=== PATIENT | female | born 1965 | race Caucasian/White ===

== ENCOUNTER 2018-04-06 08:36 | Day surgery (SDC) | payer BC, SELFPAY ==
--- NOTE | 2018-04-06 | LES_PTH ---
PATIENT: RIGO SILVA [place] [facility] [id number] AGE/SX: 52/F ROOM: RE04/06/[address]: Dr. Gregory Hess MD : 1965 BED: DIS: 04/06/2018 SPEC #: [id number] RECD: 04/09/18 13:40 STATUS: PHILLIP RECheo #: [id number] OZZIE: 04/06/18 00:[address]: Gregory Hess DEPT: SURGICAL PATHOLOGY RECD BY: Porter Castellon ENTERED: 04/09/18 13:41 SP TYPE: Lesion OTHR DR: Dr. Diana Hebert MD Tissues: Skin of face, NOS Procedures: Surgery Specimen Level IV HEADER OPERATION: Excision infected cystic lesions left cheek PRE-OP DIAGNOSIS: 3 cm infected cystic lesion cluster left cheek (3 lesions); 3 cm infected cystic lesion cluster right cheek (6 lesions); 1 cm infected cystic lesions left medial cheek at level of commissure; family history skin cancer TISSUE SUBMITTED: Cystic lesion cluster x3 left cheek MICROSCOPIC DIAGNOSIS Cyst lesion cluster x3, left cheek, excision: Epidermal inclusion cyst, multiple, fragmented. BROOKS:[place] 04/10/18 MICROSCOPIC DESCRIPTION Slides are reviewed. GROSS DESCRIPTION Received in fixative is one container labeled with the patient's name and designated cystic lesion cluster x3 left cheek. The specimen consists of multiple pieces of banks-yellow to brown soft tissue that in aggregate measure 1.5 x 1.5 x 0.3 cm. The entire specimen is submitted in one cassette. / BROOKS:[place] 04/09/18 TC:5 CPT: 44327
--- NOTE | 2018-04-06 00:04 | HP.PCM_ITS ---
History and Physical Date of Admission: 04/06/18 HISTORY OF PRESENT ILLNESS 52 year old woman presents with multiple infected cystic lesions cluster on her bilateral cheeks that have worsened over the last couple of years. They have intermittently enlarged on both cheeks and have improved with antibiotics. She had a large one spontaneously drained on the left cheek at home and she was placed on antibiotics. At the present time, she has no complaints of infection. She denies any fever. Sometimes when there is drainage, patient states it doesn't smell very good. She states she has never been treated for acne. Patient is a smoker who states she is in the process of quitting. She presents at this time for further evaluation and treatment. PAST MEDICAL HISTORY UTI (urinary tract infection) PAST SURGICAL HISTORY left oophorectomy MEDICATIONS alendronate ALLERGIES None. FAMILY HISTORY Father - Heart disease, Melanoma Mother - Thyroid disorder SOCIAL HISTORY Smoking Status: Former smoker REVIEW OF SYSTEMS General - Denies fever, fatigue, and weight loss. Eyes - Denies cataracts and glaucoma. ENT - Denies nasal congestion and sore throat. Endocrine - Denies excessive thirst and urination. Skin - Denies skin cancer. Has multiple cystic lesions cluster bilateral cheeks with history of intermittent infection. Musculoskeletal - Denies joint pain, joint stiffness, weakness of muscles and joints, back pain, and arthritis. Neuro - Denies headaches. Cardiovascular - Denies chest pain, fatigue, and shortness of breath with exertion. Psych - Denies anxiety and depression. Respiratory - Denies chronic cough and shortness of breath. Gastrointestinal - Denies nausea, vomiting, diarrhea, and constipation. Hematologic - Denies abnormal bruising and bleeding. Genitourinary - Denies hematuria and urinary frequency. PHYSICAL EXAMINATION General - Alert and Oriented HEENT - PERRL. EOMI. Throat is clear. On the left cheek there is a cluster of cystic lesions each measuring about 6 mm. The lateral most lesion measures 6 mm. There are about 3 small lesion in the cluster. The cluster measures 3 cm. No evidence of infection at this time. On the right cheek there is a cluster of cystic lesions each measuring about 4 mm. There are about 6 small lesions in the cluster. The cluster measures 3 cm. No evidence of infection at this time. On the left medial cheek at the level of the commissure is a cystic lesion that measures 1 cm. No evidence of infection at this time. No ulcerations. Lesions are nontender. Neck - Supple and nontender. No cervical adenopathy. No suspicious lesions noted. Lungs - Clear to auscultation. Heart - Regular rate and rhythm. Abdomen - Soft and nondistended. Extremities - FROM. No axillary adenopathy. Radial pulses are palpable. No suspicious lesions noted. Neuro - CN II-XII grossly intact. Psych - Normal mood and affect. ASSESSMENT 1. 3 cm infected cystic lesions cluster left cheek (3 lesions). 2. 3 cm infected cystic lesions cluster right cheek (6 lesions). 3. 1 cm infected cystic lesion left medial cheek at the level of the commissure. 4. Family history of skin cancer. 5. Smoker, recently quit for the surgery. PLAN Recommend excision of these cystic lesions cluster and send them to Pathology for analysis to rule out carcinoma. Reconstruction may need a local skin flap or skin graft. I will excise just a couple of them initially, the most symptomatic, to see how well she heals. if healing is adequately, can then address the rest of them. If infection is noted at the time of excision, tissue will be sent to Microbiology for culture. A positive culture would necessitate antibiotic therapy. Told the patient that smoking can affect healing and can aggravate these cystic lesions cluster. Encouraged patient to stop smoking as it may have deleterious effects on wound healing. Surgery would be done on an outpatient basis under general anesthesia. After the incisions have healed, she may benefit from a good skin care regimen that may help keep her pores unplugged and open. Also periodical facials may help as well. Patient was informed of the risks and complications of the procedure including alternatives to surgery. These were discussed with the patient personally. Patient voices understanding and wishes to proceed. Some of the risks and complications were included in a form from the [employer].
[2018-04-06 09:02] VITALS: BP 128/71; PULSE 85; RESP 16; TEMP 37.4; O2SAT 100; BMI 24.7
[2018-04-06] MEDS: Mupirocin Ointment 22gm Tube 1 APPLIC (13:40)
--- NOTE | 2018-04-06 13:50 | OP.PN_ITS ---
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 1 cm and 6 mm and 6 mm chronically infected cystic lesions cluster x3 left cheek. 2. Family history of skin cancer. 3. Smoker, recently quit for the surgery. Post-Operative Diagnosis: Same. Surgery/Procedure Performed:: Excision 1 cm and 6 mm and 6 mm chronically infected cystic lesions cluster x3 left cheek with layered closure. Description of Surgical Findings:: 52 year old woman presents with multiple infected cystic lesions cluster on her bilateral cheeks that have worsened over the last couple of years. They have intermittently enlarged on both cheeks and have improved with antibiotics. She had a large one spontaneously drained on the left cheek at home and she was placed on antibiotics. At the present time, she has no complaints of infection. She denies any fever. Sometimes when there is drainage, patient states it doesn't smell very good. She states she has never been treated for acne. Patient is a smoker who states she is in the process of quitting. Today the patient underwent excision 1 cm and 6 mm and 6 mm chronically infected cystic lesions cluster x3 left cheek with layered closure. Estimated Blood Loss: 5 ml. Specimen's removed: Chronically infected cystic lesions cluster x3 to Pathology. Drains: None. Type of Anesthesia:: Local MAC - xylocaine with epinephrine and IV sedation. - Admit VTE Documentation VTE Present on Admission: No VTE Mechan Device Prophylaxis: SCD's VTE Pharm Prophylaxis ordered?: No
[2018-04-06 13:58] VITALS: BP 106/70; BP 128/71; PULSE 81; RESP 16; TEMP 36.8; O2SAT 100
--- NOTE | 2018-04-06 13:58 | PCM.DC ---
You will use the following diet at home:: No restrictions Discharge Activity: May not drive while taking narcotic pain medications., May Shower - in two days., - - keep head elevated. no heavy lifting. May shower in (days): 2 May resume sexual activity in: No Restrictions Ice area for (Minutes): 5 - as needed for facial swelling. Weight Bearing Status: Weight bearing as tolerated Lifting Restrictions: 20 lbs. Keep extremity elevated above heart level: - - elevate head. Call your doctor if your incision/area has: Continuous Slow Oozing, Sudden Increased Bleeding, Increased Pain/ Swelling, Increased Redness, Foul Smelling Discharge, Swelling at the incision site Call your doctor if you observe: Fever of 101 or Higher, Coldness, Increased Pain, Shortness of breath, Chest pain, Calf discomfort, Uncontrolled pain Suture Line Care: - - apply antibiotic ointment to suture line daily. Allergies/Adverse Reactions: Allergies No Known Allergies Allergy (Verified 04/06/18 09:00) Medications to take at Discharge Clindamycin HCl [Cleocin] 300 mg PO TID #21 cap 04/06/18 Lactobacillus Acidophilus/Fos [Acidophilus Probiotic Tablet] 1 ea PO BID #15 tab 04/06/18 Oxycodone HCl/Acetaminophen [Percocet 5/325] 1 tab PO 4X/DAY PRN PRN 5 Days #20 tab 04/06/18 The following prescriptions were given: Oxycodone HCl/Acetaminophen [Percocet 5/325] 1 tab PO 4X/DAY PRN PRN 5 Days #20 tab PRN Reason: Pain Lactobacillus Acidophilus/Fos [Acidophilus Probiotic Tablet] 1 ea PO BID #15 tab Clindamycin HCl [Cleocin] 300 mg PO TID #21 cap Primary Care Physician: Diana Hebert [Primary Care Provider] - Test Results: Test results from this visit will be discussed in further detail at your follow-up appointment, if applicable. Please Follow Up With: Gregory Hess MD When: one week. call [phone] for appt. Proposed Discharge Date: 04/06/18
--- NOTE | 2018-04-06 14:01 | DCINST_ITS ---
You will use the following diet at home:: No restrictions Discharge Activity: May not drive while taking narcotic pain medications., May Shower - in two days., - - keep head elevated. no heavy lifting. May shower in (days): 2 May resume sexual activity in: No Restrictions Ice area for (Minutes): 5 - as needed for facial swelling. Weight Bearing Status: Weight bearing as tolerated Lifting Restrictions: 20 lbs. Keep extremity elevated above heart level: - - elevate head. Call your doctor if your incision/area has: Continuous Slow Oozing, Sudden Increased Bleeding, Increased Pain/ Swelling, Increased Redness, Foul Smelling Discharge, Swelling at the incision site Call your doctor if you observe: Fever of 101 or Higher, Coldness, Increased Pain, Shortness of breath, Chest pain, Calf discomfort, Uncontrolled pain Suture Line Care: - - apply antibiotic ointment to suture line daily. Allergies/Adverse Reactions: Allergies No Known Allergies Allergy (Verified 04/06/18 09:00) Medications to take at Discharge Clindamycin HCl [Cleocin] 300 mg PO TID #21 cap 04/06/18 Lactobacillus Acidophilus/Fos [Acidophilus Probiotic Tablet] 1 ea PO BID #15 tab 04/06/18 Oxycodone HCl/Acetaminophen [Percocet 5/325] 1 tab PO 4X/DAY PRN PRN 5 Days #20 tab 04/06/18 The following prescriptions were given: Oxycodone HCl/Acetaminophen [Percocet 5/325] 1 tab PO 4X/DAY PRN PRN 5 Days #20 tab PRN Reason: Pain Lactobacillus Acidophilus/Fos [Acidophilus Probiotic Tablet] 1 ea PO BID #15 tab Clindamycin HCl [Cleocin] 300 mg PO TID #21 cap Primary Care Physician: Diana Hebert [Primary Care Provider] - Test Results: Test results from this visit will be discussed in further detail at your follow- up appointment, if applicable. Please Follow Up With: Gregory Hess MD When: one week. call [phone] for appt. Proposed Discharge Date: 04/06/18
[2018-04-06 14:04] VITALS: BP 125/77; BP 128/71; PULSE 80; RESP 16; O2SAT 100
[2018-04-06 14:09] VITALS: BP 110/81; BP 128/71; PULSE 76; RESP 16; O2SAT 100
[2018-04-06 14:14] VITALS: BP 124/74; BP 128/71; PULSE 79; RESP 16; TEMP 37.1
[2018-04-06 14:40] VITALS: BP 128/71
--- NOTE | 2018-04-06 17:45 | PCM.OPRPT ---
Report of Operation Date of Procedure: 04/06/18 Pre-Operative Diagnosis: 1. 1 cm and 6 mm and 6 mm chronically infected cystic lesions cluster x3 left cheek. 2. Family history of skin cancer. 3. Smoker, recently quit for the surgery. Post-Operative Diagnosis: Same. Surgery/Procedure Performed:: Excision 1 cm and 6 mm and 6 mm chronically infected cystic lesions cluster x3 left cheek with layered closure. Description of Surgical Findings:: 52 year old woman presents with multiple infected cystic lesions cluster on her bilateral cheeks that have worsened over the last couple of years. They have intermittently enlarged on both cheeks and have improved with antibiotics. She had a large one spontaneously drained on the left cheek at home and she was placed on antibiotics. At the present time, she has no complaints of infection. She denies any fever. Sometimes when there is drainage, patient states it doesn't smell very good. She states she has never been treated for acne. Patient is a smoker who states she is in the process of quitting. Patient was informed of the risks and complications of the procedure including alternatives to surgery. These were discussed with the patient personally. Patient voices understanding and wishes to proceed. Some of the risks and complications were included in a form from the [employer]. Encouraged patient to stop smoking as it may have deleterious effects on wound healing. She states she has quit. 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 Specimen's removed: Chronically infected cystic lesions cluster x3 to Pathology. Drains: None. Estimated Blood Loss (mL): 5 ml. Description of Procedure: Patient was taken to OR in supine position and was given IV sedation. The left cheek was prepped and draped in the usual fashion. SCD's were placed for DVT prophylaxis. Perioperative antibiotics were given intravenously. The lesions cluster left cheek were infiltrated with xylocaine and epinephrine. After waiting 5 minutes for the anesthetic to take effect, I proceeded with oblique incisions over these lesions cluster x 3 down into the subcutaneous tissue. There was a lot of scar tissue present which was excised. Some of the overlying skin was adherent and was excised as well. The cystic lesions were dissected free and were well encapsulated and were excised and sent to Pathology for analysis to rule out carcinoma. The subcutaneous tissue and muscle were seen and no further evidence of lesions were noted. These lesions were chronically infected, but there was no evidence of infection today. The most lateral lesion measured 1 cm and the other two measured 6 mm each. The wounds were irrigated with saline. Hemostasis was obtained with electrocautery. The wounds were closed in multiple layered fashion with 5-0 Monocryl interrupted sutures for the deep dermis and subcutaneous tissue. The skin was approximated with 6-0 Prolene simple interrupted sutures. Steri-strips were applied followed by antibiotic ointment. Patient tolerated the procedure well and was sent to PACU in satisfactory condition. Patient will be sent home on antibiotics and pain medication. Patient will keep her head elevated during the initial postop period. Patient will followup in a week for a wound check and for discussion of the pathology report and for removal of the sutures. Grafts/Implants Used: None. - Complications None. - Admit VTE Documentation VTE Present on Admission: No VTE Mechan Device Prophylaxis: SCD's VTE Pharm Prophylaxis ordered?: No Code Visit Surgery Charges CPT - 98573 ICD-10 - R22.0, L03.211, Z80.8, Z87.891 08685 R22.0, L03.211, Z80.8, Z87.891 23988 R22.0, L03.211, Z80.8, Z87.891 38066 R22.0, L03.211, Z80.8, Z87.891
--- NOTE | 2018-04-07 12:46 | OP.PCM_ITS ---
Report of Operation Date of Procedure: 04/06/18 Pre-Operative Diagnosis: 1. 1 cm and 6 mm and 6 mm chronically infected cystic lesions cluster x3 left cheek. 2. Family history of skin cancer. 3. Smoker, recently quit for the surgery. Post-Operative Diagnosis: Same. Surgery/Procedure Performed:: Excision 1 cm and 6 mm and 6 mm chronically infected cystic lesions cluster x3 left cheek with layered closure. Description of Surgical Findings:: 52 year old woman presents with multiple infected cystic lesions cluster on her bilateral cheeks that have worsened over the last couple of years. They have intermittently enlarged on both cheeks and have improved with antibiotics. She had a large one spontaneously drained on the left cheek at home and she was placed on antibiotics. At the present time, she has no complaints of infection. She denies any fever. Sometimes when there is drainage, patient states it doesn't smell very good. She states she has never been treated for acne. Patient is a smoker who states she is in the process of quitting. Patient was informed of the risks and complications of the procedure including alternatives to surgery. These were discussed with the patient personally. Patient voices understanding and wishes to proceed. Some of the risks and complications were included in a form from the [employer]. Encouraged patient to stop smoking as it may have deleterious effects on wound healing. She states she has quit. 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 Specimen's removed: Chronically infected cystic lesions cluster x3 to Pathology. Drains: None. Estimated Blood Loss (mL): 5 ml. Description of Procedure: Patient was taken to OR in supine position and was given IV sedation. The left cheek was prepped and draped in the usual fashion. SCD's were placed for DVT prophylaxis. Perioperative antibiotics were given intravenously. The lesions cluster left cheek were infiltrated with xylocaine and epinephrine. After waiting 5 minutes for the anesthetic to take effect, I proceeded with oblique incisions over these lesions cluster x 3 down into the subcutaneous tissue. There was a lot of scar tissue present which was excised. Some of the overlying skin was adherent and was excised as well. The cystic lesions were dissected free and were well encapsulated and were excised and sent to Pathology for analysis to rule out carcinoma. The subcutaneous tissue and muscle were seen and no further evidence of lesions were noted. These lesions were chronically infected, but there was no evidence of infection today. The most lateral lesion measured 1 cm and the other two measured 6 mm each. The wounds were irrigated with saline. Hemostasis was obtained with electrocautery. The wounds were closed in multiple layered fashion with 5-0 Monocryl interrupted sutures for the deep dermis and subcutaneous tissue. The skin was approximated with 6-0 Prolene simple interrupted sutures. Steri-strips were applied followed by antibiotic ointment. Patient tolerated the procedure well and was sent to PACU in satisfactory condition. Patient will be sent home on antibiotics and pain medication. Patient will keep her head elevated during the initial postop period. Patient will followup in a week for a wound check and for discussion of the pathology report and for removal of the sutures. Grafts/Implants Used: None. - Complications None. - Admit VTE Documentation VTE Present on Admission: No VTE Mechan Device Prophylaxis: SCD's VTE Pharm Prophylaxis ordered?: No Code Visit Surgery Charges CPT - 76725 ICD-10 - R22.0, L03.211, Z80.8, Z87.891 53689 R22.0, L03.211, Z80.8, Z87.891 88600 R22.0, L03.211, Z80.8, Z87.891 26450 R22.0, L03.211, Z80.8, Z87.891
== END 2018-04-06 14:46 | disposition home or self-care (01) ==
LOC: SDC 08:37 → AC 08:39
PROVIDERS: Family Provider Family Medicine; PCP Family Medicine; Referring Provider Surgery; Visit Provider Surgery
PROC: (CPT 11442; principal; 2018-04-06 10:20)
DX: L72.0 Epidermal cyst (principal); F17.200 Nicotine dependence, unspecified, uncomplicated; Z87.440 Personal history of urinary (tract) infections; Z80.8 Family history of malignant neoplasm of other organs or systems
CPT/HCPCS: 11442; 12051; 88305; J7120

== ENCOUNTER 2018-11-06 05:59 | Day surgery (SDC) | payer OTHER, SELFPAY ==
--- NOTE | 2018-11-05 20:32 | HP.PCM_ITS ---
History and Physical Date of Admission: 11/06/18 HISTORY OF PRESENT ILLNESS 53 year old woman presents with multiple infected cystic lesions cluster on her bilateral cheeks that have worsened over the last couple of years. They have intermittently enlarged on both cheeks and have improved with antibiotics. At the present time, she has no complaints of infection. She denies any fever. Sometimes when there is drainage, patient states it doesn't smell very good. She states she has never been treated for acne. Patient was a smoker who has quit for her surgeries. Her previous surgery was on 04/06/18 where she underwent excision 1 cm and 6 mm and 6 mm chronically infected cystic lesions cluster x3 left cheek with layered closure. She presents at this time for further evaluation and treatment. PAST MEDICAL HISTORY UTI (urinary tract infection) epidermal inclusion cysts cluster left cheek PAST SURGICAL HISTORY left oophorectomy excision 1 cm and 6 mm and 6 mm chronically infected cystic lesions cluster x3 left cheek with layered closure - 04/06/18 MEDICATIONS alendronate ALLERGIES None. FAMILY HISTORY Father - Heart disease, Melanoma Mother - Thyroid disorder SOCIAL HISTORY Smoking Status: Former smoker REVIEW OF SYSTEMS General - Denies fever, fatigue, and weight loss. Eyes - Denies cataracts and glaucoma. ENT - Denies nasal congestion and sore throat. Endocrine - Denies excessive thirst and urination. Skin - Denies skin cancer. Has multiple cystic lesions cluster bilateral cheeks with history of intermittent infection. Musculoskeletal - Denies joint pain, joint stiffness, weakness of muscles and joints, back pain, and arthritis. Neuro - Denies headaches. Cardiovascular - Denies chest pain, fatigue, and shortness of breath with exertion. Psych - Denies anxiety and depression. Respiratory - Denies chronic cough and shortness of breath. Gastrointestinal - Denies nausea, vomiting, diarrhea, and constipation. Hematologic - Denies abnormal bruising and bleeding. Genitourinary - Denies hematuria and urinary frequency. PHYSICAL EXAMINATION General - Alert and Oriented HEENT - PERRL. EOMI. Throat is clear. On the left cheek there is a healing scar from previous excision of cluster of cystic lesions. No evidence of infection at this time. On the right cheek there is a cluster of cystic lesions each measuring about 4 mm. There are about 6 small lesions in the cluster. The cluster measures 3 cm. No evidence of infection at this time. On the left medial cheek at the level of the commissure is a cystic lesion that measures 1 cm. No evidence of infection at this time. No ulcerations. Lesions are nontender. Neck - Supple and nontender. No cervical adenopathy. No suspicious lesions noted. Lungs - Clear to auscultation. Heart - Regular rate and rhythm. Abdomen - Soft and nondistended. Extremities - FROM. No axillary adenopathy. Radial pulses are palpable. No suspicious lesions noted. Neuro - CN II-XII grossly intact. Psych - Normal mood and affect. ASSESSMENT 1. 3 cm infected cystic lesions cluster right cheek (6 lesions). 2. 1 cm infected cystic lesion left medial cheek at the level of the commissure. 3. 3 cm infected cystic lesions cluster left cheek (3 lesions), recently ex cised. 4. Family history of skin cancer. 5. Former smoker. PLAN Recommend excision of these cystic lesions cluster on her right cheek and left medial cheek at the level of the commissure and send them to Pathology for analysis to rule out carcinoma. Reconstruction may need a local skin flap or skin graft. The excision of cystic lesions cluster from her left cheek were excised in 04/05 with good healing. If infection is noted at the time of excision, tissue will be sent to Microbiology for culture. A positive culture would necessitate antibiotic therapy. Encouraged patient to stop smoking as it may have deleterious effects on wound healing. She states she has stopped smoking at the time of her last surgery in 04/05 and has continued no smoking since then. Surgery would be done on an outpatient basis under general anesthesia. After the incisions have healed, she may benefit from a good skin care regimen that may help keep her pores unplugged and open. Also periodical facials may help as well. Patient was informed of the risks and complications of the procedure including alternatives to surgery. These were discussed with the patient personally. Sung herrmann voices understanding and wishes to proceed. Some of the risks and complications were included in a form from the [place] [employer].
--- NOTE | 2018-11-06 | CYST_PTH ---
PATIENT: RIGO SILVA LOC: [facility] – [place] U#:[id number] AGE/SX: 53/F ROOM: RE11/06/[address]: Dr. Gregory Hess MD : 1965 BED: DIS: 11/06/2018 SPEC #: [id number] RECD: 11/06/18 09:30 STATUS: PHILLIP MALINI #: [id number] OZZIE: 11/06/18 00:[address]: Gregory Hess DEPT: SURGICAL PATHOLOGY RECD BY: Porter Castellon ENTERED: 11/06/18 10:31 SP TYPE: Cyst OTHR DR: Dr. Diana Hebert MD Tissues: A - CYST B - CYST Procedures: Surgery Specimen Level III Surgery Specimen Level IV HEADER OPERATION: Excision chronic infected cystic lesion cluster, right cheek PRE-OP DIAGNOSIS: 3 cm infected cystic lesions cluster right cheek (six lesions); 1 cm infected cystic lesion medial cheek at level of commissure TISSUE SUBMITTED: A - 1 cm infected cystic lesion medial cheek at level of commissure, B - 2-3 cm infected cystic lesions cluster right cheek MICROSCOPIC DIAGNOSIS A. Cystic lesion medial cheek, biopsy: Epidermal inclusion cyst. Focal verrucoid keratosis. Solar elastosis. B. Cystic lesion clusters, right cheek, biopsy: Fragments of benign skin and sebaceous structures. Fibrinoid material suggestive of benign cyst contents. AM:ventura 11/07/18 MICROSCOPIC DESCRIPTION Slides are reviewed. GROSS DESCRIPTION A - Received in fixative is one container labeled with the patient's name and designated 1 cm infected cystic lesion medial cheek at level of commissure. The specimen consists of an irregular portion of skin and underlying soft tissue measuring 1 x 0.9 cm and excised to a depth of 1 cm. The banks skin surface measures 0.7 x 0.3 cm. The underlying soft tissue demonstrates a partially ruptured cystic lesion measuring 0.6 cm in greatest dimension. The specimen is totally submitted in one cassette. B - Received in fixative is one container labeled with the patient's name and designated 2-3 cm infected cystic lesions cluster right cheek. The specimen consists of two banks-yellow portions of soft fatty tissue that in aggregate measure 0.9 x 0.9 x 0.4 cm. Grossly, a 0.2 cm segment of possible skin is present. The specimen is totally submitted in one cassette. / CE:ventura 11/06/18 TC:5 CPT: 34798, 40976
[2018-11-06 06:22] VITALS: BP 119/42; PULSE 72; RESP 14; TEMP 36.3; O2SAT 99; BMI 26.2
[2018-11-06] MEDS: Mupirocin Ointment 22gm Tube 1 APPLIC (08:27)
[2018-11-06 08:56] VITALS: BP 107/58; BP 119/42; PULSE 78; RESP 16; TEMP 36.7; O2SAT 96
--- NOTE | 2018-11-06 08:56 | OP.PCM_ITS ---
Report of Operation Date of Procedure: 11/06/18 Pre-Operative Diagnosis: 1. 3 cm infected cystic lesions cluster right cheek (6 lesions). 2. 1 cm infected cystic lesion left medial cheek near the commissure. 3. 3 cm infected cystic lesions cluster left cheek (3 lesions), recently excised. 4. Family history of skin cancer. 5. Former smoker. Post-Operative Diagnosis: 1. 6 mm and 6 mm and 6 mm infected cystic lesions x3 cluster right cheek. 2. 1 cm infected cystic lesion left medial cheek near the commissure. 3. 1 cm and 6 mm and 6 mm infected cystic lesions x3 cluster left cheek, recently excised. 4. Family history of skin cancer. 5. Former smoker. Surgery/Procedure Performed:: 1. Excision 6 mm and 6 mm and 6 mm infected cystic lesions x3 cluster right cheek with 2.5 cm layered closure. 2. Excision 1 cm infected cystic lesion left medial cheek near the commissure with 1.5 cm layered closure. Description of Surgical Findings:: 53 year old woman presents with multiple infected cystic lesions cluster on her bilateral cheeks that have worsened over the last couple of years. They have intermittently enlarged on both cheeks and have improved with antibiotics. At the present time, she has no complaints of infection. She denies any fever. Sometimes when there is drainage, patient states it doesn't smell very good. She states she has never been treated for acne. Patient was a smoker who has quit for her surgeries. Her previous surgery was on 04/06/18 where she underwent excision 1 cm and 6 mm and 6 mm chronically infected cystic lesions cluster x3 left cheek with layered closure. Today we will address the chronically infected cystic lesions cluster right cheek and chronically infected cystic lesion left medial cheek near the commissure. Patient was informed of the risks and complications of the procedure including alternatives to surgery. These were discussed with the patient personally. Patient voices understanding and wishes to proceed. Some of the risks and complications were included in a form from the [place] [employer]. magazine hand: None Type of Anesthesia:: Local MAC - xylocaine with epinephrine and IV sedation. Specimen's removed: 1. Infected cystic lesion left medial cheek near the commissure to Pathology. 2. Infected cystic lesions x3 cluster right cheek to Pathology. Drains: None. Estimated Blood Loss (mL): 5 ml. Description of Procedure: Patient was taken to OR in supine position and was given IV sedation. The face was prepped and draped in the usual fashion. SCD's were placed for DVT prophylaxis. Perioperative antibiotics were given intravenously. The lesions cluster right cheek and lesion left medial cheek near the commissure were infiltrated with xylocaine and epinephrine. After waiting 5 minutes for the anesthetic to take effect, I proceeded with oblique incisions over these lesions cluster x 3 right cheek down into the subcutaneous tissue. There was a lot of scar tissue present which was excised. Some of the overlying skin was adherent and was excised as well. The cystic lesions were dissected free and were well encapsulated and were excised and sent to Pathology for analysis to rule out carcinoma. The subcutaneous tissue and muscle were seen and no further evidence of lesions were noted. These lesions were chronically infected, but there was no evidence of infection today. Each lesion measured 6 mm. There were two incisions as one incision encompassed two lesions. The wounds were irrigated with saline. Hemostasis was obtained with electrocautery. The wounds were closed in multiple layered fashion with 5-0 Monocryl interrupted sutures for the deep dermis and subcutaneous tissue. The skin was approximated with 6-0 Prolene simple interrupted sutures. Antibiotic ointment was applied. The length of the layered closure for the incision with two lesions was 1.5 cm and the length of the layered closure for the other incision was 1 cm for a total of 2.5 cm on the right cheek. I then proceeded with oblique incision over the lesion left medial cheek near the commissure down into the subcutaneous tissue. There was a lot of scar tissue present which was excised. Some of the overlying skin was adherent and was excised as well. The cystic lesion was dissected free and was well encapsulated and was excised and sent to Pathology for analysis to rule out carcinoma. The subcutaneous tissue and muscle were seen and no further evidence of a lesion was noted. The lesion was chronically infected, but there was no evidence of infection today. The lesion measured 1 cm. The wound was irrigated with saline. Hemostasis was obtained with electrocautery. The wound was closed in multiple layered fashion with 5-0 Monocryl interrupted sutures for the deep dermis and subcutaneous tissue. The skin was approximated with 6-0 Prolene simple interrupted sutures. Antibiotic ointment was applied. The length of the layered closure for the incision left medial cheek near the commissure was 1.5 cm. Patient tolerated the procedure well and was sent to PACU in satisfactory condition. Patient will be sent home on antibiotics and pain medication. Patient will keep her head elevated during the initial postop period. Patient will followup in a week for a wound check and for discussion of the pathology report and for removal of the sutures. Grafts/Implants Used: None. - Complications None. - Admit VTE Documentation VTE Present on Admission: No VTE Mechan Device Prophylaxis: SCD's VTE Pharm Prophylaxis ordered?: No Code Visit Surgery Charges CPT - 39901 ICD-10 - R22.0, L03.211, Z80.8, Z87.891 83720 R22.0, L03.211, Z80.8, Z87.891 36280 R22.0, L03.211, Z80.8, Z87.891 17357 R22.0, L03.211, Z80.8, Z87.891 16356 R22.0, L03.211, Z80.8, Z87.891
[2018-11-06 09:00] VITALS: BP 110/77; BP 119/42; PULSE 79; RESP 16; O2SAT 96
[2018-11-06 09:05] VITALS: BP 100/53; BP 119/42; PULSE 79; RESP 16; O2SAT 95
--- NOTE | 2018-11-06 09:06 | PCM.DC ---
You will use the following diet at home:: No restrictions Discharge Activity: May not drive while taking narcotic pain medications., May Shower - in two days., - - keep head elevated. no heavy lifting. May shower in (days): 2 May resume sexual activity in: No Restrictions Ice area for (Minutes): 5 - as needed for facial swelling. Weight Bearing Status: Weight bearing as tolerated Lifting Restrictions: 20 lbs. Keep extremity elevated above heart level: - - elevate head. Call your doctor if your incision/area has: Continuous Slow Oozing, Sudden Increased Bleeding, Increased Pain/ Swelling, Increased Redness, Foul Smelling Discharge, Swelling at the incision site Call your doctor if you observe: Fever of 101 or Higher, Coldness, Increased Pain, Shortness of breath, Chest pain, Calf discomfort, Uncontrolled pain Suture Line Care: - - apply antibiotic ointment to suture line daily. Cleanse incision/area with: - - may get incisions wet in the shower in two days. Allergies/Adverse Reactions: Allergies No Known Allergies Allergy (Verified 10/18/18 14:59) Medications to take at Discharge Clindamycin HCl [Cleocin] 300 mg PO TID #21 cap 11/06/18 Lactobacillus Acidophilus/Fos [Acidophilus Probiotic Tablet] 1 ea PO BID #15 tab 11/06/18 Oxycodone HCl/Acetaminophen [Percocet 5/325] 1 tab PO 4X/DAY PRN PRN 5 Days #20 tab 11/06/18 The following prescriptions were given: Oxycodone HCl/Acetaminophen [Percocet 5/325] 1 tab PO 4X/DAY PRN PRN 5 Days #20 tab PRN Reason: Pain Lactobacillus Acidophilus/Fos [Acidophilus Probiotic Tablet] 1 ea PO BID #15 tab Clindamycin HCl [Cleocin] 300 mg PO TID #21 cap Primary Care Physician: Diana Hebert [Primary Care Provider] - Test Results: Test results from this visit will be discussed in further detail at your follow-up appointment, if applicable. Please Follow Up With: Gregory Hess MD When: one week. call [phone] for appt. Proposed Discharge Date: 11/06/18
--- NOTE | 2018-11-06 09:09 | DCINST_ITS ---
You will use the following diet at home:: No restrictions Discharge Activity: May not drive while taking narcotic pain medications., May Shower - in two days., - - keep head elevated. no heavy lifting. May shower in (days): 2 May resume sexual activity in: No Restrictions Ice area for (Minutes): 5 - as needed for facial swelling. Weight Bearing Status: Weight bearing as tolerated Lifting Restrictions: 20 lbs. Keep extremity elevated above heart level: - - elevate head. Call your doctor if your incision/area has: Continuous Slow Oozing, Sudden Increased Bleeding, Increased Pain/ Swelling, Increased Redness, Foul Smelling Discharge, Swelling at the incision site Call your doctor if you observe: Fever of 101 or Higher, Coldness, Increased Pain, Shortness of breath, Chest pain, Calf discomfort, Uncontrolled pain Suture Line Care: - - apply antibiotic ointment to suture line daily. Cleanse incision/area with: - - may get incisions wet in the shower in two days. Allergies/Adverse Reactions: Allergies No Known Allergies Allergy (Verified 10/18/18 14:59) Medications to take at Discharge Clindamycin HCl [Cleocin] 300 mg PO TID #21 cap 11/06/18 Lactobacillus Acidophilus/Fos [Acidophilus Probiotic Tablet] 1 ea PO BID #15 tab 11/06/18 Oxycodone HCl/Acetaminophen [Percocet 5/325] 1 tab PO 4X/DAY PRN PRN 5 Days #20 tab 11/06/18 The following prescriptions were given: Oxycodone HCl/Acetaminophen [Percocet 5/325] 1 tab PO 4X/DAY PRN PRN 5 Days #20 tab PRN Reason: Pain Lactobacillus Acidophilus/Fos [Acidophilus Probiotic Tablet] 1 ea PO BID #15 tab Clindamycin HCl [Cleocin] 300 mg PO TID #21 cap Primary Care Physician: Diana Hebert [Primary Care Provider] - Test Results: Test results from this visit will be discussed in further detail at your follow- up appointment, if applicable. Please Follow Up With: Gregory Hess MD When: one week. call [phone] for appt. Proposed Discharge Date: 11/06/18
[2018-11-06 09:10] VITALS: BP 101/54; BP 119/42; PULSE 77; RESP 16; TEMP 36.2; O2SAT 96
[2018-11-06 09:35] VITALS: BP 119/42
== END 2018-11-06 09:45 | disposition home or self-care (01) ==
LOC: SDC 06:00 → AC 06:01
PROVIDERS: Family Provider Family Medicine; PCP Family Medicine; Referring Provider Surgery; Visit Provider Surgery
PROC: (CPT 11443; principal; 2018-11-06 07:50)
DX: L72.0 Epidermal cyst (principal); L57.0 Actinic keratosis; L57.8 Other skin changes due to chronic exposure to nonionizing radiation; Z87.891 Personal history of nicotine dependence; Z87.440 Personal history of urinary (tract) infections
CPT/HCPCS: 00300; 11443; 12052; 88304; 88305; J7120

== ENCOUNTER 2019-07-23 05:36 | Day surgery (SDC) | payer OTHER, SELFPAY ==
[2019-07-10 08:31] VITALS: BMI 26.2
--- NOTE | 2019-07-22 22:53 | PCM.HP.BLA ---
History and Physical Date of Admission: 07/23/19 HISTORY OF PRESENT ILLNESS 54 year old woman presents with a painful cystic lesion on her right lower cheek that have worsened over the last several months. She had been on Clindamycin initially for it, which helped with the redness. At the present time, she has no complaints of infection. She denies any fever. She states she has never been treated for acne. Patient is a smoker. Her previous surgery was on 04/06/18 where she underwent excision 1 cm and 6 mm and 6 mm chronically infected cystic lesions cluster x3 left cheek with layered closure and on 11/06/18 where she underwent excision 6 mm and 6 mm and 6 mm infected cystic lesions x3 cluster right cheek with 2.5 cm layered closure and excision 1 cm infected cystic lesion left medial cheek near the commissure with 1.5 cm layered closure. She presents at this time for further evaluation and treatment. PAST MEDICAL HISTORY UTI (urinary tract infection) chronic infected cystic lesions bilateral cheeks PAST SURGICAL HISTORY left oophorectomy Excision 1 cm and 6 mm and 6 mm chronically infected cystic lesions cluster x3 left cheek with layered closure - 04/06/18 Excision 6 mm and 6 mm and 6 mm infected cystic lesions x3 cluster right cheek with 2.5 cm layered closure and excision 1 cm infected cystic lesion left medial cheek near the commissure with 1.5 cm layered closure - 11/06/18 ALLERGIES No Known Allergies MEDICATIONS ibuprofen clindamycin HCl FAMILY HISTORY Father - Heart disease, Melanoma Mother - Thyroid disorder SOCIAL HISTORY Smoking Status: Former smoker REVIEW OF SYSTEMS General - Denies fever, fatigue, and weight loss. Eyes - Denies cataracts and glaucoma. ENT - Denies nasal congestion and sore throat. Endocrine - Denies excessive thirst and urination. Skin - Denies skin cancer. Has infected cystic lesion right lower cheek recently treated with Cleocin. Musculoskeletal - Denies joint pain, joint stiffness, weakness of muscles and joints, back pain, and arthritis. Neuro - Denies headaches. Cardiovascular - Denies chest pain, fatigue, and shortness of breath with exertion. Psych - Denies anxiety and depression. Respiratory - Denies chronic cough and shortness of breath. Patient is a former smoker since I started excising these chronically infected cystic lesions. Gastrointestinal - Denies nausea, vomiting, diarrhea, and constipation. Hematologic - Denies abnormal bruising and bleeding. Genitourinary - Denies hematuria and urinary frequency. PHYSICAL EXAMINATION General - Alert and Oriented HEENT - PERRL. EOMI. Throat is clear. On the left cheek there is a healing scar from previous excision of cluster of cystic lesions. No evidence of infection at this time. On the right cheek there is a healing scar from previous excision of cluster of cystic lesions. On the left medial cheek at the level of the commissure is a healing scar from previous excision of cystic lesion. On the right lower cheek is a chronically infected cystic lesion. It is mobile. No evidence of infection today. Measures 1.8 cm. No ulceration. Lesion is nontender. Neck - Supple and nontender. No cervical adenopathy. No suspicious lesions noted. Lungs - Clear to auscultation. Heart - Regular rate and rhythm. Abdomen - Soft and nondistended. Extremities - FROM. No axillary adenopathy. Radial pulses are palpable. No suspicious lesions noted. Neuro - CN II-XII grossly intact. Psych - Normal mood and affect. ASSESSMENT 1. 1.8 cm chronically infected cystic lesion right lower cheek. 2. Family history of skin cancer. 3. Former smoker. PLAN Recommend excision of this chronically infected cystic lesion right lower cheek and send them to Pathology for analysis to rule out carcinoma. Reconstruction may need a local skin flap or skin graft depending on how much skin adherent and needs removal. If infection is noted at the time of excision, tissue will be sent to Microbiology for culture. A positive culture would necessitate antibiotic therapy. Surgery would be done on an outpatient basis under general anesthesia. After the incisions have healed, she may benefit from a good skin care regimen that may help keep her pores unplugged and open. Also periodical facials may help as well. Patient was informed of the risks and complications of the procedure including alternatives to surgery. These were discussed with the patient personally. Patient voices understanding and wishes to proceed. Some of the risks and complications were included in a form from the [employer]. Renewed her Cleocin that she will use for flare ups.
[2019-07-23] VITALS (7 sets, daily range): BP systolic 99–117; BP diastolic 49–67; PULSE 64–74; RESP 15–16; TEMP 36.2–36.6; O2SAT 96–100; BMI 24.7
[2019-07-23] MEDS: Lactated Ringers 1,000 ML 100 ML IV (06:29)
--- NOTE | 2019-07-23 07:30 | LES_PTH ---
PATIENT: RIGO SILVA [place] [facility] [place][id number] AGE/SX: 54/F ROOM: RE07/23/[address]: Dr. Gregory Hess MD : 1965 BED: DIS: 07/23/2019 SPEC #: [id number] RECD: 07/23/19 11:53 STATUS: PHILLIP MALINI #: [id number] OZZIE: 07/23/19 07:[address]: Gregory Hess DEPT: SURGICAL PATHOLOGY RECD BY: Karthik Fuchs ENTERED: 07/23/19 13:13 SP TYPE: Lesion OTHR DR: Dr. Diana Hebert MD Tissues: Skin of face, NOS Procedures: Surgery Specimen Level III HEADER OPERATION: Excision cystic lesion cheek PRE-OP DIAGNOSIS: 1.8 cm chronically infected cystic lesion right lower cheek TISSUE SUBMITTED: Infected cystic lesion right cheek MICROSCOPIC DIAGNOSIS Infected cystic lesion right cheek, excision: Consistent with ruptured epidermal inclusion cyst with chronic inflammation and foreign body giant cell reaction. BROOKS:vent[place] 07/24/19 MICROSCOPIC DESCRIPTION Slides are reviewed. GROSS DESCRIPTION Received in fixative is one container labeled with the patient's name and designated infected cystic lesion right cheek. The specimen consists of a piece of adipose tissue measuring 1.5 x 1.5 x 0.7 cm. A piece of skin is noted at one edge measuring 1.5 x 0.2 cm. Also present in the container are two pieces of soft tissue measuring in aggregate 1 x 0.7 x 0.1 cm. The largest piece is inked and serially sectioned. The entire specimen is submitted in one cassette. / BROOKS:vent[place] 07/23/19 TC:5 CPT: 42405
[2019-07-23] MEDS: Mupirocin Ointment 22gm Tube 1 APPLIC (08:00)
--- NOTE | 2019-07-23 08:11 | PCM.OPRPT ---
Report of Operation Date of Procedure: 07/23/19 Pre-Operative Diagnosis: 1. 1.8 cm chronically infected cystic lesion right lower cheek. 2. Family history of skin cancer. 3. Former smoker. Post-Operative Diagnosis: Same. Surgery/Procedure Performed:: Excision 1.8 cm chronically infected cystic lesion right lower cheek with 2 cm layered closure. Description of Surgical Findings:: 54 year old woman presents with a painful cystic lesion on her right lower cheek that have worsened over the last several months. She had been on Clindamycin initially for it, which helped with the redness. At the present time, she has no complaints of infection. She denies any fever. She states she has never been treated for acne. Patient is a smoker. Her previous surgery was on 04/06/18 where she underwent excision 1 cm and 6 mm and 6 mm chronically infected cystic lesions cluster x3 left cheek with layered closure and on 11/06/18 where she underwent excision 6 mm and 6 mm and 6 mm infected cystic lesions x3 cluster right cheek with 2.5 cm layered closure and excision 1 cm infected cystic lesion left medial cheek near the commissure with 1.5 cm layered closure. Patient was informed of the risks and complications of the procedure including alternatives to surgery. These were discussed with the patient personally. Patient voices understanding and wishes to proceed. Some of the risks and complications were included in a form from the [employer]. life enrichment assistant: None Type of Anesthesia:: Local MAC - xylocaine with epinpehrine and IV sedation. Specimen's removed: Chronically infected cystic lesion right lower cheek to Pathology. Drains: None. Estimated Blood Loss (mL): 10 ml. Description of Procedure: Patient was taken to OR in supine position and was given IV sedation. The right cheek was prepped and draped in the usual fashion. SCD's were placed for DVT prophylaxis. Perioperative antibiotics were given intravenously. The lesion right cheek was infiltrated with xylocaine and epinephrine. After waiting 5 minutes for the anesthetic to take effect, I proceeded with an oblique incision over this lesion right lower cheek down into the subcutaneous tissue. There was a lot of scar tissue present which was excised. Some of the overlying skin was adherent and was excised as well. The cystic lesion was dissected free and was well encapsulated and was excised and sent to Pathology for analysis to rule out carcinoma. The subcutaneous tissue and muscle were seen and no further evidence of the lesion was noted. The lesion was chronically infected, but there was no evidence of infection today. The lesion measured 1.8 cm. The wound was irrigated with saline. Hemostasis was obtained with electrocautery. The wound was closed in a multiple layered fashion with 5-0 Monocryl interrupted sutures for the deep dermis and subcutaneous tissue. The skin was approximated with 6-0 Prolene simple interrupted sutures. Steri-strips were applied followed by antibiotic ointment. Patient tolerated the procedure well and was sent to PACU in satisfactory condition. Patient will be sent home on antibiotics and pain medication. Patient will keep her head elevated during the initial postop period. Patient will followup in a week for a wound check and for discussion of the pathology report and for removal of the sutures. Grafts/Implants Used: None. - Complications None. - Admit VTE Documentation VTE Present on Admission: No VTE Mechan Device Prophylaxis: SCD's VTE Pharm Prophylaxis ordered?: No Code Visit Surgery Charges CPT - 55816 ICD-10 - R22.0, L03.211, Z80.8, Z87.891 93233 R22.0, L03.211, Z80.8, Z87.891
--- NOTE | 2019-07-23 08:20 | DCINST_ITS ---
You will use the following diet at home:: No restrictions Discharge Activity: May not drive while taking narcotic pain medications., May Shower - in two days., - - keep head elevated. no heavy lifting. May shower in (days): 2 May resume sexual activity in: No Restrictions Ice area for (Minutes): 5 - as needed for facial swelling. Weight Bearing Status: Weight bearing as tolerated Lifting Restrictions: 20 lbs. Keep extremity elevated above heart level: - - elevate head. Call your doctor if your incision/area has: Continuous Slow Oozing, Sudden Increased Bleeding, Increased Pain/ Swelling, Increased Redness, Foul Smelling Discharge, Swelling at the incision site Call your doctor if you observe: Fever of 101 or Higher, Coldness, Increased Pain, Shortness of breath, Chest pain, Calf discomfort, Uncontrolled pain Suture Line Care: - - apply antibiotic ointment to suture line daily after operative dressing removed. Change Dressing in (Days):: 2 - may remove operative dressing in two days. Cleanse incision/area with: - - may get incision wet in the shower in two days. Allergies/Adverse Reactions: Allergies No Known Allergies Allergy (Verified 07/23/19 06:06) Medications to take at Discharge Doxycycline 100 mg PO BID 07/18/19 Clindamycin HCl [Cleocin] 300 mg PO TID #21 cap 07/23/19 Oxycodone HCl/Acetaminophen [Percocet 5/325] 1 tablet PO Q6H PRN PRN 5 Days #20 tablet 07/23/19 The following prescriptions were given: Clindamycin HCl [Cleocin] 300 mg PO TID #21 cap Transmission Status: Pending to [facility] Oxycodone HCl/Acetaminophen [Percocet 5/325] 1 tablet PO Q6H PRN PRN 5 Days #20 tablet PRN Reason: Pain Score 4-5/10 Transmission Status: Sent to [facility] Primary Care Physician: Diana Hebert MD [Primary Care Provider] - Test Results: Test results from this visit will be discussed in further detail at your follow- up appointment, if applicable. Please Follow Up With: Gregory Hess MD When: one week. call [phone] for appt. Proposed Discharge Date: 07/23/19
== END 2019-07-23 09:14 | disposition home or self-care (01) ==
LOC: SDC 05:37 → AC 05:39
PROVIDERS: PCP Family Medicine; Referring Provider Surgery; Visit Provider Surgery
PROC: (CPT 11442; principal; 2019-07-23 07:20)
DX: L72.9 Follicular cyst of the skin and subcutaneous tissue, unspecified (principal); Z87.891 Personal history of nicotine dependence
CPT/HCPCS: 00300; 11442; 12051; 88304; 88305; J7120; J2405